=== PATIENT | female | born 1960 | race African-American/Black ===

== ENCOUNTER 2024-03-31 09:01 | Emergency (ER) | payer MEDICAID, OTHER ==
[~2024-03-31] VITALS: Ht 175.3 cm; Wt 81.0 kg
[2024-03-31 09:19] VITALS: O2SAT 99
[2024-03-31] MEDS ORDERED: IBUPROFEN 400MG TABLET PO SCH (10:30)
[2024-03-31] MEDS: KETOROLAC 60MG/2ML VIAL IM ONE (11:07)
[2024-03-31 11:13] VITALS: BP 143/71; PULSE 66; RESP 19; TEMP 97.7
== END 2024-03-31 11:18 | disposition home or self-care (01) ==
LOC: ER 09:01
DX: M13.861 Other specified arthritis, right knee (principal)
CPT/HCPCS: 73560; 96372; 99283; J1885; Z7610

== ENCOUNTER 2025-06-01 09:33 | Emergency (ER) | payer OTHER ==
[~2025-06-01] VITALS: Ht 175.3 cm; Wt 103.0 kg
[2025-06-01 09:41] VITALS: O2SAT 97
[2025-06-01 10:08] LABS: BASOPHILS % 0.3 % (0.0-2.0); EOSINOPHILS % 1.7 % (0.0-5.0); HEMATOCRIT. 27.9 % (36.0-48.0); HEMOGLOBIN. 9.8 g/dL (12.0-16.0); LYMPHOCYTES % 20.8 % (20.0-50.0); MEAN PLATELET VOLUME 8.7 fl (7.4-10.4); MONOCYTES % 2.4 % (2.0-8.0); NEUTROPHILS % 74.8 % (40.0-76.0); PLATELET 276 x1000/uL (130-400); RED BLOOD CELL COUNT 3.56 mill/uL (4.2-5.4); RED CELL DISTRIBUTION WIDTH 22.9 % (11.6-14.6)
[2025-06-01 10:11] LABS: ADD RBC MORPHOLOGY YES
[2025-06-01 10:19] LABS: HCG SCREEN NEGATIVE
[2025-06-01 10:23] LABS: CREATININE 0.8 mg/dL (0.6-1.0); UREA NITROGEN BLOOD 7 mg/dL (9-23)
[2025-06-01 10:58] LABS: CLARITY URINE CLEAR (CLEAR); COLOR URINE ORANGE (YELLOW); GLUCOSE URINE NEGATIVE (NEGATIVE); KETONES URINE TRACE (NEGATIVE); LEUKOCYTE ESTERASE URINE TRACE (NEGATIVE); NITRITE URINE NEGATIVE (NEGATIVE); OCCULT BLOOD URINE NEGATIVE (NEGATIVE); PH URINE 5.5 (4.5-8.0); PROTEIN URINE TRACE (NEGATIVE); SPECIFIC GRAVITY URINE 1.019 (1.005-1.030); UROBILINOGEN URINE 1.0 E.U./dL (0.2-1.0)
[2025-06-01 11:09] VITALS: BP 147/74; PULSE 72; RESP 18; TEMP 37.2; O2SAT 99
[2025-06-01 11:11] LABS: PLATELET ESTIMATE NORMAL
[2025-06-01 11:25] LABS: MUCUS URINE 2+ /lpf (< = 2+); SQUAMOUS EPITHELIAL CELL URINE 1+ /lpf (RARE/1+)
[2025-06-01 11:26] LABS: BACTERIA URINE 1+; RBC URINE NONE SEEN /hpf (0-2); WBC URINE 0-2 /hpf (0-2)
== END 2025-06-01 11:45 | disposition home or self-care (01) ==
LOC: ER 09:41
DX: N93.8 Other specified abnormal uterine and vaginal bleeding (principal); M19.90 Unspecified osteoarthritis, unspecified site; R93.89 Abnormal findings on diagnostic imaging of other specified body structures
CPT/HCPCS: 36415; 76830; 76856; 80048; 81003; 84703; 85025; 86850; 86900; 99284